=== PATIENT | female | born 1955 | race Caucasian/White ===

== ENCOUNTER 2023-04-25 16:05 | Outpatient (REF) | payer MEDICARE, SELFPAY ==
[2023-04-25 17:34] LABS: Absolute Basophil Count 0.04 10^3/uL (0.0-0.2); Absolute Eosinophil Count 0.14 10^3/uL (0.0-0.7); Absolute Lymphocyte Count 1.32 10^3/uL (1.2-3.4); Absolute Monocyte Count 0.33 10^3/uL (0.1-0.8); Absolute Neutrophil Count 2.26 10^3/uL (1.2-6.7); Eosinophils % 3.4; HGB 13.4 g/dL (11.2-15.7); Lymphocytes % 32.3; MCH 30.1 pg (27.0-33.0); MCHC 31.9 % (32.0-36.0); MCV 94 fL (80-95); MPV 12.1 fL (8.0-11.0); Monocytes % 8.1; Neutrophils % 55.2; Platelet Count 229 10^3/uL (130-400); RBC 4.45 10^6/uL (3.93-5.22); RDW 13.9 % (11.7-14.6); RDW-SD 48.7 fL; WBC 4.09 10^3/uL (4.4-10.8)
[2023-04-25 17:52] LABS: ALT 22 U/L (14-59); AST 27 U/L (15-37); Albumin 3.8 g/dL (3.4-5.0); Alkaline Phosphatase 71 U/L (46-116); Anion Gap 9.3 mmol/L (3-11); BUN 9 mg/dL (7-18); Bilirubin, Total 0.5 mg/dL (0.2-1.0); CO2 26.7 mmol/L (21.0-32.0); CREATININE 0.8 mg/dL (0.55-1.02); Calcium 9.4 mg/dL (8.5-10.1); Chloride 105 mmol/L (98-107); Estimated GFR 79.71 (mL/min/1.73m2); Glucose 86 mg/dL (74-106); Potassium 3.8 mmol/L (3.5-5.1); Sodium 141 mmol/L (136-145); TSH (W/Ref FT4) 1.15 uIU/mL (0.36-3.74); Total Protein 7.7 g/dL (6.4-8.2)
[2023-04-25 18:03] LABS: Vitamin D 25 Total 41.3 ng/mL (30-100)
== END 2023-04-25 16:06 | disposition home or self-care (01) ==
LOC: NCHCN 16:05
PROVIDERS: Visit Provider Family Medicine
DX: R53.83 Other fatigue (principal); E55.9 Vitamin D deficiency, unspecified; F90.9 Attention-deficit hyperactivity disorder, unspecified type
CPT/HCPCS: 80053; 82306; 84443; 85025

== ENCOUNTER 2024-04-27 19:38 | Outpatient (REF) | payer MEDICARE, SELFPAY ==
[2024-04-27 21:26] LABS: Abs Immature Grans 0.01 10^3/uL (0.0-0.06); Absolute Basophil Count 0.04 10^3/uL (0.0-0.2); Absolute Eosinophil Count 0.12 10^3/uL (0.0-0.7); Absolute Monocyte Count 0.41 10^3/uL (0.1-0.8); Absolute Neutrophil Count 2.27 10^3/uL (1.2-6.7); Basophils % 0.9 %; Eosinophils % 2.7 %; HCT 41.7 % (36.0-46.0); Immature Grans % 0.2 %; MCH 30.2 pg (27.0-33.0); MCHC 31.2 % (32.0-36.0); MCV 97 fL (80-95); MPV 12.3 fL (8.0-11.0); Monocytes % 9.2 %; Platelet Count 232 10^3/uL (130-400); RBC 4.31 10^6/uL (3.93-5.22); RDW 13.4 % (11.7-14.6); RDW-SD 48.4 fL; WBC 4.45 10^3/uL (4.4-10.8)
[2024-04-27 21:37] LABS: Iron 57 ug/dL (50-170); Total Iron Binding Capacity 299 ug/dL (250-450); Transferrin Sat 19 % (15-50)
[2024-04-27 22:10] LABS: ALT 18 U/L (14-59); AST 28 U/L (15-37); Albumin 3.7 g/dL (3.4-5.0); Alkaline Phosphatase 65 U/L (46-116); Anion Gap 5.8 mmol/L (3-11); BUN 10 mg/dL (7-18); Bilirubin, Total 0.29 mg/dL (0.2-1.0); CO2 30.2 mmol/L (21.0-32.0); CREATININE 0.7 mg/dL (0.55-1.02); Calcium 9.1 mg/dL (8.5-10.1); Calculated LDL 113 mg/dL (<100); Chloride 106 mmol/L (98-107); Cholesterol 204 mg/dL (<200); Estimated GFR 92.98 (mL/min/1.73m2); Glucose 109 mg/dL (74-106); HDL Cholesterol 64 mg/dL (40-60); Potassium 4.1 mmol/L (3.5-5.1); Sodium 142 mmol/L (136-145); Total Protein 7.2 g/dL (6.4-8.2); Triglyceride 135 mg/dL (<150)
[2024-04-28 02:28] LABS: TSH (W/Ref FT4) 1.13 uIU/mL (0.36-3.74)
== END 2024-04-27 19:39 | disposition home or self-care (01) ==
LOC: NCHCN 19:38
PROVIDERS: Visit Provider Family Medicine
DX: D64.9 Anemia, unspecified (principal); E61.1 Iron deficiency; E55.9 Vitamin D deficiency, unspecified; R53.83 Other fatigue; E66.8 Other obesity
CPT/HCPCS: 80053; 80061; 82306; 83540; 83550; 84443; 85025

== ENCOUNTER 2025-04-28 15:03 | Outpatient (REF) | payer MEDICARE, SELFPAY ==
[2025-04-28 15:59] LABS: Abs Immature Grans 0.01 10^3/uL (0.0-0.06); HCT 40.7 % (36.0-46.0); HGB 12.6 g/dL (11.2-15.7); Immature Grans % 0.2 %; MCH 29.4 pg (27.0-33.0); MCHC 31.0 % (32.0-36.0); MCV 95 fL (80-95); MPV 11.8 fL (8.0-11.0); Platelet Count 219 10^3/uL (130-400); RBC 4.28 10^6/uL (3.93-5.22); RDW 13.3 % (11.7-14.6); RDW-SD 46.9 fL; WBC 5.55 10^3/uL (4.4-10.8)
[2025-04-28 16:47] LABS: ALT 22 U/L (14-59); AST 25 U/L (15-37); Albumin 3.6 g/dL (3.4-5.0); Alkaline Phosphatase 62 U/L (46-116); Anion Gap 7.8 mmol/L (3-11); BUN 9 mg/dL (7-18); Bilirubin, Total 0.4 mg/dL (0.2-1.0); CO2 29.2 mmol/L (21.0-32.0); Calcium 9.3 mg/dL (8.5-10.1); Chloride 108 mmol/L (98-107); Estimated GFR 92.41 (mL/min/1.73m2); Glucose 102 mg/dL (74-106); Potassium 4.2 mmol/L (3.5-5.1); Sodium 145 mmol/L (136-145); Total Protein 6.7 g/dL (6.4-8.2)
[2025-04-28 16:48] LABS: C-Reactive Protein < 0.50 mg/dL (<or=0.5)
[2025-04-28 17:35] LABS: Iron 95 ug/dL (50-170)
[2025-04-28 17:36] LABS: Calculated LDL 114 mg/dL (<100); Cholesterol 188 mg/dL (<200); Ferritin 38 ng/mL (8-252); HDL Cholesterol 65 mg/dL (>or=50); T4 7.1 ug/dL (4.7-13.3); TSH 1.44 uIU/mL (0.36-3.74); Triglyceride 45 mg/dL (<150)
[2025-04-28 22:01] LABS: T3,Free 4.5 pg/mL (2.8-5.3)
[2025-04-29 12:28] LABS: Lyme Ab w Rflx to Lyme Confirm Negative (Negative)
== END 2025-04-28 15:04 | disposition home or self-care (01) ==
LOC: NCHCN 15:03
PROVIDERS: Visit Provider Physician Assistant
DX: M62.81 Muscle weakness (generalized) (principal); Z13.220 Encounter for screening for lipoid disorders
CPT/HCPCS: 80053; 80061; 82728; 83540; 84436; 84443; 84481; 85025; 86140; 86618